=== PATIENT | female | born 1960 | race African-American/Black ===

== ENCOUNTER 2016-02-22 16:16 | Emergency (ER) | payer BC ==
[2016-02-22] MEDS ORDERED: KETOROLAC 60 MG/2 ML VIAL IM ONE (17:56)
[2016-02-22] MEDS ORDERED: CYCLOBENZAPRINE 10 MG TAB ONE (17:56)
== END 2016-02-22 19:12 | disposition home or self-care (01) ==
LOC: ER 16:16
DX: S39.012A Strain of muscle, fascia and tendon of lower back, initial encounter (principal); M54.42 Lumbago with sciatica, left side; Z79.899 Other long term (current) drug therapy; Z79.82 Long term (current) use of aspirin
CPT/HCPCS: 72100; 81001; 87088; 96372